=== PATIENT | female | born 2005 | race Caucasian/White ===

== ENCOUNTER 2025-03-30 22:40 | Emergency (ER) | payer OTHER, SELFPAY ==
--- NOTE | ~2025-03-30 | CT_ITS ---
CLINICAL HISTORY: Abnl X-ray; ? Tibial Fx CT right ankle without contrast Comparison: CR - XR ANKLE RT MIN 3V - 03/30/25 23:22 EST Findings: Acute nondisplaced sagittal orientation fracture at the medial border of the tibial plafond. No arthritic changes. Ankle lipohemarthrosis. No abnormalities of the flexor, extensor, or peroneal tendons. No foreign body. IMPRESSION: Acute intra-articular nondisplaced fracture medial border of tibial plafond with associated ankle lipohemarthrosis. This document has been electronically signed by: Ethan Garcia MD on 03/31/2025 03:51:49
--- NOTE | ~2025-03-30 | XR_ITS ---
CLINICAL HISTORY: fall, pain 3 view right ankle Comparison: None provided Findings: On series image 1, there is a subtle hairline lucency involving medial aspect of articular surface of the distal tibia not well appreciated on additional projections. There is no obvious acute or displaced ankle fracture. Ankle mortise is maintained. Joint spaces are maintained. No acute soft tissue abnormality. Impression: 1. Subtle curvilinear lucency along the medial articular surface of the distal tibia as detailed above only seen on 1 of the provided projection. This may represent vascular/nutrient channel however tiny nondisplaced fracture can not be excluded. If clinically indicated, follow-up with CT or repeat radiographs in 8-10 days may be considered. 2. Additional findings as above. This document has been electronically signed by: Ildefonso Dowling MD on 03/31/2025 00:00:26
[2025-03-30 22:45] VITALS: BP 125/63; PULSE 106; RESP 20; TEMP 37.3; O2SAT 98; BMI 16.3
--- NOTE | 2025-03-31 01:18 | ED.GENADULT ---
HPI - General Adult General Chief complaint: Extremity Problem Stated complaint: sprained ankle Time Seen by Provider: 03/31/25 01:03 Source: patient Mode of arrival: wheelchair Limitations: no limitations History of Present Illness ED Provider: Carlos Lopez PA-C HPI narrative: Patient is a 19 year old female presenting after twisting her right ankle. Pt states at 1900 was spinning her friend around and fell, twisting her right ankle. Pt was unsure if her friend landed on her ankle. She iced the ankle for over an hour, took 2 advil, when the pain persisted and she was unable to walk, came into the ED. Pt states her pain involves the anterior ankle as well as both the medial and lateral malleoli of her R ankle. Related Data Allergies Allergy/AdvReac Type Severity Reaction Status Date / Time No Known Allergies Allergy Verified 03/30/25 22:49 Review of Systems Review of Systems: Yes all other systems are reviewed and are negative PMFSH Social History Social History Advance Directives: No Advance Directives Information Provided: Yes Patient : No Physical Exam ED Vital Signs: Vital Signs - 24 hr 03/30/25 22:45 03/31/25 02:51 Temperature 99.2 F 98.3 F Pulse Rate 106 H 95 Respiratory Rate 20 16 Blood Pressure 125/63 109/52 L Pulse Oximetry 98 97 Oxygen Delivery Method Room Air Room Air BMI result Body Mass Index 16.3 CONSTITUTIONAL: The patient appears non-toxic, well nourished and in no acute distress. Vital signs as documented. HEAD: Atraumatic, normocephalic. EYES: EOMs grossly intact, pupils equal, conjunctiva clear, no exudate. ENT: Nares patent, no discharge. Airway patent, no audible stridor, visible mucosa is pink and moist without noted lesions. NECK: trachea is midline, no obvious masses or gross abnormalities. CHEST: Symmetric movement, normal appearance. LUNGS: Non-labored work of breathing. CARDIAC: No evidence of hypoperfusion. ABDOMEN: Nondistended, no obvious injury. : Deferred. EXTREMITIES: Patient's right ankle demonstrates tenderness to palpation of the anterior surface of the ankle, there is alson pain in the anterior ankle with palpation of the lateral and medial malleoli, however there is no crepitus, deformity, or pain in the area of compression when manipulating the malleoli. Distal CSM intact, 2+ DP/PT pulses. No open injury. Moves all other extremities spontaneously without reported pain. No other obvious injury or deformity noted. NEURO: Alert and oriented x3, CN II-XII appear grossly intact. Cerebellar Functioning grossly intact. Speech clear and appropriate. SKIN: Warm, dry, color appropriate. No rashes or lesions noted. Medications Administered Discontinued Medications Generic Name Dose Route Start Last Admin Trade Name Freq PRN Reason Stop Dose Admin Acetaminophen 975 mg 03/31/25 01:31 03/31/25 01:40 Acetaminophen 325 Mg Tablet PO 03/31/25 01:32 975 mg ONCE ONE Administration Medical Decision Making Medical Decision Making MDM Narrative: Patient is a 19 year old female presenting after twisting her right ankle. Pt states at 1900 was spinning her friend around and fell, twisting her right ankle. Pt was unsure if her friend landed on her ankle. She iced the ankle for over an hour, took 2 advil, when the pain persisted and she was unable to walk, came into the ED. Pt states her pain is on both sides of her R ankle. On exam, right ankle demonstrates tenderness to palpation of the anterior surface of the ankle, there is also pain in the anterior ankle with palpation of the lateral and medial malleoli, however there is no crepitus, deformity, or pain in the area of compression when manipulating the malleoli. Distal CSM intact, 2+ DP/PT pulses. No open injury. X-ray obtained of the right ankle demonstrates a small lucency of the medial distal tibia on a single view, unclear if true cortical irregularity versus nutrient vessel. The patient's tenderness does align clinically with this area, as such we will obtain CT imaging to clarify this finding. Patient took ibuprofen prior to arrival in the ED, we will supplement with Tylenol. Pending CT imaging we will disposition with orthopedic follow up, likely with walking boot and crutches. 2:39 AM 03/31/2025 (Scott LO): The patient's CT of the right ankle demonstrates a nondisplaced fracture of the medial malleolus of the right tibia. The patient will be placed in a walking boot and provided crutches with nonweightbearing instructions. Patient will be discharged with orthopedic follow up. Admission/Observation Consideration of admission/observation: Escalation of care including admission/observation considered Independent Interpretation I performed an independent interpretation of an: CT Scan Interpretation: This provider's interpretation of the patient's CT of the right ankle demonstrates a nondisplaced fracture of the medial malleolus of the right distal tibia, with intra-articular extension. Radiology Impression Discussion of test interpretation with radiology: I have reviewed the radiologist's reading. Radiologist Impression: 3 view right ankle Comparison: None provided Findings: On series image 1, there is a subtle hairline lucency involving medial aspect of articular surface of the distal tibia not well appreciated on additional projections. There is no obvious acute or displaced ankle fracture. Ankle mortise is maintained. Joint spaces are maintained. No acute soft tissue abnormality. Impression: 1. Subtle curvilinear lucency along the medial articular surface of the distal tibia as detailed above only seen on 1 of the provided projection. This may represent vascular/nutrient channel however tiny nondisplaced fracture can not be excluded. If clinically indicated, follow-up with CT or repeat radiographs in 8-10 days may be considered. 2. Additional findings as above. This document has been electronically signed by: Ildefonso Dowling MD on 03/31/2025 00:00:26 Discharge Plan Discharge Clinical Impression: Closed tibia fracture Patient Disposition: Home, Self-Care Instructions: Ankle Fracture (ED) Additional Instructions: Thank you for choosing [facility]'s Emergency Department for your care today. At this time there is no indication for admission to the hospital or continued ED observation, and it is safe to discharge you home. Unfortunately your CT today confirm that you suffered from a fracture of your lower right tibia, the weight-bearing bone your lower leg. Your fracture thankfully is not displaced and does not require any reduction while here in the ED. We have provided you with a walking boot and crutches. Please wear the provided boot at all times and use the crutches to remain non weight-bearing until follow up with the orthopedic clinic. Please contact the orthopedic clinic today by calling the number provided to schedule a follow up appointment. You should take alternating (staggered) doses of ibuprofen 600mg and Tylenol 1000mg every 4 hours as needed for any additional pain. Please rest the injured area, and apply ice on top of the splint/boot for 20 minutes every hour. Please also follow up with your primary care physician for re-evaluation, additional management of your symptoms, and continued preventative care. If you do not have a primary care physician, please call the [facility] at [phone] to establish a new primary care physician. While waiting to establish your new primary care physician, you can call our Walk-in Care Clinic at [phone] for non-emergency needs. Please return to the emergency department if you develop a severe or sudden change in your symptoms, a fever over 100.4 that does not improve with Tylenol or Ibuprofen, recurrent vomiting, or any other new or worsening symptoms or concerns. Referrals: [facility] Orthopedic Surgeons [Provider Group] Clinical Impression: Closed tibia fracture Print Language: Armenian
--- OUTSIDE RECORDS SUMMARY | 2025-03-31 02:40 | XMS_ITS | Clinical Summary ---
Author Organization [facility] Address [address] [place] [phone] Phone Care Team Providers [facility] [employer] Name Role Phone Pcp, Unknown Primary Care Provider Unavailabl e Allergies No known active allergies Medications No known medications Active Problems Problem Noted Date Diagnosed Date Closed fracture of bone of right foot 02/01/2023 Difficulty walking due to ankle and foot joint 0 01/02/2023 Pain in right foot 01/02/2023 Social History Tobacco Use Types Packs/Day Years Used Date Smoking Tobacco: Never Smokeless Tobacco: Never Tobacco Cessation:Counseling Given: Not Answered Alcohol Use Standard Drinks/Week Comments Not Currently 0 (1 standard drink = 0.6 oz pur e alcohol) Education Answer Date Recorded Are you interested in more education? Not on chica e 12/19/2022 Are you concerned about learning? Not on file 12/19/2022 No 12/19/2022 No 12/19/2022 Digital Access Answer Date Recorded No 12/19/2022 No 12/19/2022 Reliable internet access at home? Not on file 12/19/2022 Device with a working camera? Not on file Comments Unknown Sex and Gender Information Value Date Recorded Sex Assigned at Female 01/12/2023 5:01 PM EDT Legal Sex Female 3:58 PM EDT Gender Identity Non-binary 01/12/2023 5:01 PM EDT Sexual Orientation Bisexual 01/12/2023 5: 01 PM EDT Last Filed Vital Signs Vital Sign Reading Time Taken Comments Blood Pressure - - Pulse - - Temperature - - Respiratory Rate - - Oxygen Saturation - - Inhaled Oxygen Concentration - - Weight 59 kg (130 lb) 01/24/2023 4:39 PM EDT Height 181.1 cm (5' 11.3 ) 01/24/2023 4:39 PM ED T Body Mass Index 17.98 01/24/2023 4:39 PM EDT Plan of Treatment Health Maintenance Due Date Last Done Comments MMR VACCINES (1 of 1 - Stand estefani series) 2005 DEVELOPMENTAL/BEHAVIORAL SCR EENING (PHQ, PSC, or SWYC) 2007 COMBINED DTaP,Tdap,Td (1 - Tdap) 2011 DEPRESSION SCREENING 2016 SMOKING Hx and SMOKELESS TOB ACCO SCREENING 2017 VARICELLA VACCINES (1 of 2 - 13+ 2-dose series) 2017 HPV VACCINES (1 - 3-dose series) 2019 CHLAMYDIA SCREENING 2020 MENINGOCOCCAL VACCINES (B) ( 1 of 2 - Standard) 2020 ADOLESCENT UNIVERSAL LIPID SCREENING 2021 HEPATITIS C SCREENING 2022 HIV ONE-TIME SCREENING (18-6 5 YEARS) 2022 INFLUENZA VACCINE (#1) 2024 COVID-19 VACCINE (1 - 2024-2 6 season) 2024 HEPATITIS A VACCINES Aged Out No long er eligible based on patient's age to complete this topic HIB VACCINES Aged Out No longer eligi ble based on patient's age to complete this topic MENINGOCOCCAL VACCINES (ACWY) Aged Out No longer eligible based on patient's age to complete this topic PNEUMOCOCCAL VACCINES (0-49 years) Aged Out No longer eligible based on patient's age to complete this topic Medical Devices Not on file [employer] Relationship Specialty Start Date End Date Pcp, Unknown PCP - General 12/18/22 Additional Source Comments The information contained in this document represents components of the legal health record. It is not the complete legal health record.[facility]
[2025-03-31 02:51] VITALS: BP 109/52; PULSE 95; RESP 16; TEMP 36.8; O2SAT 97
[2025-03-31 04:40] VITALS: BP 115/70; PULSE 70; RESP 18; TEMP 36.6; O2SAT 96
--- NOTE | 2025-03-31 04:57 | PC.NURSE ---
pt given crutches and walking boot with instructions. Pt was a able to tach back on swing through method for crutch use, aware of adjustments and placement of crutches. Pt will wait in ED 23 until 529 to call a cab back to her [place].
== END 2025-03-31 06:57 | disposition home or self-care (01) ==
PROVIDERS: Emergency Provider Emergency Medicine
DX: S82.54XA Nondisplaced fracture of medial malleolus of right tibia, initial encounter for closed fracture (principal); X50.1XXA Overexertion from prolonged static or awkward postures, initial encounter; Y93.89 Activity, other specified; Y92.89 Other specified places as the place of occurrence of the external cause; Y99.8 Other external cause status
CPT/HCPCS: 73610; 73700; 99284

== ENCOUNTER → 2025-03-30 23:22 | Outpatient (BNV) | payer OTHER, SELFPAY | PROVIDERS: Visit Provider Radiology Diagnostic Radiology | DX: M25.571 Pain in right ankle and joints of right foot (principal); Z04.3 Encounter for examination and observation following other accident | CPT/HCPCS: 73610 ==

== ENCOUNTER → 2025-03-31 01:31 | Outpatient (BNV) | payer OTHER, SELFPAY | PROVIDERS: Emergency Provider Emergency Medicine; Visit Provider Radiology Diagnostic Radiology | DX: S82.134A Nondisplaced fracture of medial condyle of right tibia, initial encounter for closed fracture (principal) | CPT/HCPCS: 73700 ==

== ENCOUNTER 2025-04-02 08:31 | Outpatient (AMB) | payer OTHER, SELFPAY ==
--- NOTE | 2025-04-02 08:40 | MHC.OFFVIS ---
Vital Signs 04/02/25 08:50 Height 6 ft Weight 120 lb BMI 16.3 Intake Visit Reasons: FC-RT, Closed tibia fracture-DOI 03/30/25 Intake Note: Emerita is a 19 year old female who presents today for a fracture care appointment for her right ankle injury, DOI 03/30/25. Patient was seen at [facility] ER, she reported that she was spinning her friend around and fell, twisting her right ankle and believe her friend landed on her. She was placed in a walking boot, crutches given and referred to orthopedics. Patient reports that her pain level has been low, with a pain level 1-2 out of 10. She continues to have swelling. Patient also mentions that she lives in [place] and is here for school. She is questioning if she is able to fly back home on 04/11/25 for [place] break. Allergies No Known Allergies Allergy (Verified 04/02/25 08:50) Medication List - Last Reconciled 04/02/25 by Bonnie Hernandez PA-C [Kneeling Scooter As directed] HPI Comments Details: History of Present Illness The patient is a 19 year old female who presents for evaluation of a right ankle injury that occurred on March 30. She sustained the injury when she twisted her right ankle while spinning a friend around. She was evaluated at the [facility] emergency room where x-rays and a CT scan were performed, revealing a non-displaced intra-articular medial malleolar fracture. The patient reports her pain has been well-controlled, and she has not been taking the prescribed Tylenol and Advil. She notes that she did stumble and put a small amount of weight on the foot, but it did not cause a significant increase in pain. She also experienced some heel pain which she attributes to the boot rubbing. Social History - The patient is a college student at [employer]. - She plans to travel home to [place], [place], on April 11 and will return in late April. - She reports finding it difficult to ambulate with crutches. [facility] Social History (Updated 04/02/25 @ 08:47 by RAMON Diane) Patient Tobacco Use Status: Never used Tobacco Current occupational status: student Review of Systems Narrative Review of Systems - Musculoskeletal: She reports pain in the right ankle, noting pain on her heel from her boot rubbing. - She denies any pain superior to the ankle in her leg. Physical Exam Exam Exam: Physical Exam - Right Lower Extremity: On inspection, there is minimal swelling and minimal bruising of the ankle. - No tenderness to palpation of the leg proximal to the ankle. Vital Signs: BMI result Body Mass Index 16.3 Assessment & Plan Assessment & Plan (1) Fracture of medial malleolus, right, closed: Code(s): S82.51XA - Displaced fracture of medial malleolus of right tibia, initial encounter for closed fracture Category: Medical Plan Plan 1. Other fracture of right lower leg, initial encounter for closed fracture S82.891A The patient has a nondisplaced intra-articular medial malleolar fracture of the right ankle, confirmed on CT scan. The joint remains anatomically aligned, and the fracture is stable, allowing for non-operative management. The plan is for strict [id number] for a minimum of six weeks. Due to the patient's planned air travel on April 11 and the associated risk of swelling, a splint will be applied instead of a circumferential cast. The patient was instructed not to remove the splint and was advised to follow up with an data capture specialist upon her arrival home in [place] for probable cast application. She is advised to continue taking ibuprofen for about another week and a half to manage swelling and to elevate the leg above heart level. A prescription for a kneeling scooter was provided. A referral will be placed to [facility] for follow-up upon her return to the area in late April. She will schedule a follow-up appointment for approximately six weeks from now for a repeat x-ray to assess healing. The patient was also advised to retain her boot for use after the cast is removed. Consent The patient was informed of the diagnosis of a non-displaced medial malleolar fracture of the right ankle. The risks, benefits, and alternatives of non-operative management were discussed, including the risk of fracture displacement which would necessitate surgery. The specific risks of applying a circumferential cast prior to air travel, namely swelling and discomfort, were reviewed. The alternative of applying a temporary, non-circumferential splint was discussed, and the patient agreed to this plan. The patient understood the instructions for [id number], elevation, and follow-up, and she consented to the plan of care. Patient was informed and verbally consented to the use of an ambient scribe for clinic note documentation during this visit. Orders: Referrals Orthopedics Referral S82.51XA - Displaced fracture of medial malleolus of right tibia, initial encounter for closed fracture Medications: New [Kneeling Scooter] As directed 1 ea 0RF S82.51XA - Displaced fracture of medial malleolus of right tibia, initial encounter for closed fracture Coding Level of Care Code New Pt Level 3 (34984) Add On Problem Visit Only Diagnoses Fracture of medial malleolus, right, closed S82.51XA
[2025-04-02 08:50] VITALS: BMI 16.3
== END 2025-04-02 10:43 | disposition home or self-care (01) ==
LOC: HO.HOS 08:32
PROVIDERS: Visit Provider Physician Assistant
DX: S82.54XA Nondisplaced fracture of medial malleolus of right tibia, initial encounter for closed fracture (principal)
CPT/HCPCS: 99203